=== PATIENT | female | born 1945 | race Caucasian/White ===

== ENCOUNTER 2023-02-03 17:16 | Emergency (ER) | payer BC ==
[~2023-02-03] VITALS: Ht 152.4 cm; Wt 66.7 kg
[2023-02-03 17:16] VITALS: BP_SYST 126; PULSE 76; RESP 18; TEMP 97.6; O2SAT 97
[2023-02-03] MEDS ORDERED: iohexoL 350 mgI/mL, 100 ML INFUS..BTL IV ONE (18:01)
[2023-02-03 18:08] LABS: BASOPHILS # (AUTO) 0.1 K/uL (0.0-0.2); BASOPHILS % (AUTO) 0.8 % (0.0-2.0); EOSINOPHILS # (AUTO) 0.1 K/uL (0.0-0.4); EOSINOPHILS % (AUTO) 0.5 % (0.0-4.0); HEMATOCRIT 43.6 % (36-48); HEMOGLOBIN 14.2 g/dL (12.0-16.0); LYMPHOCYTES # (AUTO) 2.4 K/uL (1.0-5.5); LYMPHOCYTES % (AUTO) 24.9 % (20.5-51.5); MEAN CORPUSCULAR HEMOGLOBIN 28 pg (27-31); MEAN CORPUSCULAR HGB CONC 33 % (32-36); MEAN CORPUSCULAR VOLUME 87 fL (79.0-98.0); MONOCYTES # (AUTO) 0.7 K/uL (0.0-1.0); MONOCYTES % (AUTO) 6.9 % (1.7-9.3); NEUTROPHILS # (AUTO) 6.3 K/uL (1.8-7.7); NEUTROPHILS % (AUTO) 66.9 % (40.0-70.0); PLATELET COUNT (AUTO) 215 K/uL (130-430); RED BLOOD CELL COUNT(AUTO) 5.03 MIL/uL (4.2-6.2); RED CELL DISTRIBUTION WIDTH 13.8 % (9.0-15.0); WHITE BLOOD COUNT (AUTO) 9.5 K/uL (4.8-10.8)
[2023-02-03 18:23] LABS: HEMOGLOBIN A1C 5.75 % (<5.7)
[2023-02-03 18:27] LABS: ALANINE AMINOTRANSFERASE 15 U/L (12-78); ALBUMIN 3.5 g/dL (3.4-4.8); ANION GAP 10 (5-15); ASPARTATE AMINOTRANSFERASE 15 U/L (10-37); CARBON DIOXIDE 26 mmol/L (23-29); CHLORIDE 102 mmol/L (98-107); CREATININE 0.72 mg/dL (0.55-1.30); GLUCOSE 130 mg/dL (74-106); POTASSIUM 3.7 mmol/L (3.5-5.1); SODIUM SERUM 138 mmol/L (136-145); TOTAL BILIRUBIN 0.4 mg/dL (0.0-1.0); TOTAL PROTEIN, SERUM 7.1 g/dL (6.4-8.3); UREA NITROGEN, BLOOD 23 mg/dL (8-21)
[2023-02-03 18:28] LABS: PROTHROMBIN TIME 9.9 SECS (9.5-12.5)
[2023-02-03 19:07] LABS: BARBITURATE, URINE NEGATIVE (NEG <=200); BENZODIAZEPINE, URINE NEGATIVE (NEG <=150); CANNABINOID, URINE NEGATIVE (NEG <=50); COCAINE, URINE NEGATIVE (NEG <=150); METHAMPHETAMINES SCREEN,URINE NEGATIVE (NEG <=500); OPIATE, URINE NEGATIVE (NEG <=100); PHENCYCLIDINE SCREEN,URINE NEGATIVE (NEG <=25); UR TRICYCLIC ANTIDEPRESSANTS NEGATIVE (NEG <=300); URINE AMPHETAMINE NEGATIVE (NEG <=500); URINE METHADONE NEGATIVE (NEG <=200); URINE OXYCODONE SCREEN NEGATIVE (NEG <=100); URINE PROPOXYPHENE SCREEN NEGATIVE (NEG <=300)
[2023-02-03 19:12] LABS: CHOLESTEROL 207 mg/dL (<200); HDL CHOLESTEROL 67 mg/dL (>55); TRIGLYCERIDES 96 mg/dL (30-150)
[2023-02-03] MEDS ORDERED: CLOPIDOGREL BISULFATE 75 MG TABLET PO ONE (19:30)
[2023-02-03] MEDS ORDERED: CLOP75TA32 PO (19:38)
[2023-02-03 19:46] VITALS: BP_SYST 160; PULSE 90; RESP 18; TEMP 97.6; O2SAT 97
== END 2023-02-03 19:46 | disposition home or self-care (01) ==
LOC: SED 17:16
DX: G45.9 Transient cerebral ischemic attack, unspecified (principal); R41.0 Disorientation, unspecified; R47.01 Aphasia; Z79.899 Other long term (current) drug therapy
CPT/HCPCS: 99291; 70496; 71045; 80061; 80307; 80053; 83037; 85025; 85610; 85730; 86886; 86900; 86901; 84484; 36415; 93005; 70498; 70450; 76376; Q9967

== ENCOUNTER 2023-03-24 11:23 | Emergency (ER) | payer BC ==
[~2023-03-24] VITALS: Ht 152.4 cm; Wt 68.0 kg
[~2023-03-24 11:23] MED LIST: CLOP75TA32 PO
[2023-03-24 11:40] VITALS: BP_SYST 161; PULSE 77; RESP 18; TEMP 98.5; O2SAT 98
[2023-03-24] MEDS ORDERED: ASPIRIN 81 MG TAB.CHEW PO ONE (12:45)
[2023-03-24 12:51] LABS: BASOPHILS # (AUTO) 0.1 K/uL (0.0-0.2); BASOPHILS % (AUTO) 0.7 % (0.0-2.0); EOSINOPHILS % (AUTO) 0.5 % (0.0-4.0); HEMATOCRIT 44.3 % (36-48); HEMOGLOBIN 14.3 g/dL (12.0-16.0); LYMPHOCYTES # (AUTO) 1.6 K/uL (1.0-5.5); MEAN CORPUSCULAR HEMOGLOBIN 28 pg (27-31); MEAN CORPUSCULAR HGB CONC 32 % (32-36); MEAN CORPUSCULAR VOLUME 87 fL (79.0-98.0); MONOCYTES # (AUTO) 0.5 K/uL (0.0-1.0); MONOCYTES % (AUTO) 6.9 % (1.7-9.3); NEUTROPHILS # (AUTO) 5.7 K/uL (1.8-7.7); NEUTROPHILS % (AUTO) 71.9 % (40.0-70.0); PLATELET COUNT (AUTO) 215 K/uL (130-430); RED BLOOD CELL COUNT(AUTO) 5.09 MIL/uL (4.2-6.2); RED CELL DISTRIBUTION WIDTH 13.9 % (9.0-15.0); WHITE BLOOD COUNT (AUTO) 7.9 K/uL (4.8-10.8)
[2023-03-24 13:07] LABS: ANION GAP 7 (5-15); CALCIUM 9.3 mg/dL (8.4-11.0); CARBON DIOXIDE 28 mmol/L (23-29); CHLORIDE 104 mmol/L (98-107); CREATININE 0.59 mg/dL (0.55-1.30); GLUCOSE 96 mg/dL (74-106); POTASSIUM 4.2 mmol/L (3.5-5.1); SODIUM SERUM 139 mmol/L (136-145); UREA NITROGEN, BLOOD 18 mg/dL (8-21)
[2023-03-24 14:11] VITALS: BP_SYST 149; PULSE 71; RESP 17; TEMP 97.6; O2SAT 99
== END 2023-03-24 14:09 | disposition home or self-care (01) ==
LOC: SED 11:23
DX: R00.2 Palpitations (principal); Z79.899 Other long term (current) drug therapy
CPT/HCPCS: 36415; 71045; 80048; 83880; 84484; 85025; 93005; 99285

== ENCOUNTER 2023-09-08 10:46 | Emergency (ER) | payer BC ==
[~2023-09-08] VITALS: Ht 152.4 cm; Wt 66.7 kg
[2023-09-08 10:47] VITALS: BP_SYST 150; PULSE 71; RESP 16; TEMP 98.2; O2SAT 98
[2023-09-08 13:28] VITALS: BP_SYST 133; PULSE 77; RESP 14; O2SAT 97
== END 2023-09-08 13:26 | disposition home or self-care (01) ==
LOC: SED 10:46
DX: S01.03XA Puncture wound without foreign body of scalp, initial encounter (principal); Z79.899 Other long term (current) drug therapy; W01.0XXA Fall on same level from slipping, tripping and stumbling without subsequent striking against object, initial encounter; Y93.89 Activity, other specified; Y92.89 Other specified places as the place of occurrence of the external cause; Y99.8 Other external cause status
CPT/HCPCS: 70450-TC; 99284